=== PATIENT | female | born 1975 | race Caucasian/White ===

== ENCOUNTER 2022-08-11 09:16 | Emergency (ER) | payer MEDICAID, OTHER ==
[2022-08-11 09:27] VITALS: BP 143/98
--- NOTE | 2022-08-11 09:36 | ED Physician Documentation ---
PD HPI HEENT - Stated complaint Stated Complaint: EAR PX - Chief complaint Chief Complaint: Heent - History obtained from History obtained from: Patient (Right ear pain for 1 week preceded by cough and cold symptoms mostly better. Still some residual sinus pressure. No fevers.) Review of Systems Constitutional: reports: Reviewed and negative Ears: reports: Loss of hearing, Ear pain. denies: Drainage/discharge Nose: reports: Rhinorrhea / runny nose, Congestion PD PAST MEDICAL HISTORY - Allergies Allergies/Adverse Reactions: Allergies Allergy/AdvReac Type Severity Reaction Status Date / Time Sulfa (Sulfonamide Allergy Emesis Verified 08/11/22 09:27 Antibiotics) PD ED PE NORMAL - Vitals Vital signs reviewed: Yes - General General: Alert and oriented X 3, No acute distress - HEENT HEENT: Other (Both TMs and canals appear normal) - Neuro Neuro: Alert and oriented X 3, Normal speech Results - Vitals Vitals: Vital Signs - 24 hr 08/11/22 09:23 Temperature 36.4 C L Heart Rate 100 Respiratory 16 Rate Blood Pressure 143/98 H O2 Saturation 99 PD MEDICAL DECISION MAKING - ED course ED course: Presumed eustachian tube dysfunction, conservative care advised. Departure - Departure Disposition: 01 Home, Self Care Clinical Impression: Acute dysfunction of both eustachian tubes Condition: Good Record reviewed to determine appropriate education?: Yes Instructions: ED Otitis Media Serous Adult Comments: Drink plenty of fluids, return for new or worsening symptoms.
== END 2022-08-11 09:52 | disposition home or self-care (01) ==
LOC: ED 09:16
DX: H69.83 Other specified disorders of Eustachian tube, bilateral (principal)
CPT/HCPCS: 99281; 99282